=== PATIENT | male | born 1960 | race Caucasian/White ===

== ENCOUNTER 2018-05-16 17:51 | Emergency (ER) | payer OTHER ==
[~2018-05-16] VITALS: Ht 188 cm; Wt 165.6 kg
[~2018-05-16 17:51] MED LIST: AMOX1TAB11 PO; ASPI-612 PO; DILT120C85 PO
[2018-05-16] MEDS ORDERED: GELATIN SPONGE SIZE 12-7MM SPONGE. TP ONE (18:00)
[2018-05-16] MEDS ORDERED: LIDOCAINE 1%/EPI 1:100,000 20 ML VIAL. INJ ONE (18:00)
[2018-05-16 18:33] LABS: BASO % 1 % (0-3); EOS # 0.4 x10^3/uL (0.0-0.7); EOS % 6 % (0-3); HEMATOCRIT 40.6 % (39.0-53.0); HEMOGLOBIN 13.9 g/dL (13.0-17.5); LYMPH # 1.2 x10^3/uL (1.0-4.8); LYMPH % 16 % (24-48); MEAN CORPUSCULAR HEMOGLOBIN 31 pg (25-35); MEAN CORPUSCULAR HGB CONC 34 g/dL (31-37); MEAN CORPUSCULAR VOLUME 89 fL (79-100); MONO # 0.9 x10^3/uL (0.0-1.1); MONO % 12 % (0-9); NEUT # 4.7 x10^3uL (1.8-7.7); NEUT % 65 % (31-73); PLATELET COUNT 159 x10^3/uL (140-400); RED BLOOD COUNT 4.57 x10^6/uL (4.30-5.70); RED CELL DISTRIBUTION WIDTH 13.7 % (11.5-14.5); WHITE BLOOD COUNT 7.3 x10^3/uL (4.0-11.0)
[2018-05-16 18:41] LABS: CALCIUM 8.7 mg/dL (8.5-10.1); CREATININE 0.9 mg/dL (0.7-1.3); POTASSIUM 3.4 mmol/L (3.5-5.1)
[2018-05-16 19:30] VITALS: BP 188/97
--- NOTE | 2018-05-16 20:21 | PHYS DOC ---
Past Medical History Past Medical History: No Pertinent History Additional Past Medical Histor: DENIES MEDICAL HX Past Surgical History: Appendectomy, Tonsillectomy Alcohol Use: None Drug Use: None Adult General Chief Complaint Chief Complaint: OTHER COMPLAINTS HPI HPI 57-year-old male presents to ER via EMS with complaints of sudden onset of bleeding from his left lower extremity. Patient reports he was walking through his home when he noticed he had bled a large amount of blood out. EMS reports approximately 100-200 mL blood loss at his residence. Patient denies having previous issues with varicose veins rupturing. Patient on arrival denies any dizziness or lightheadedness. Patient denies any pain. Patient denies daily blood thinners. He denies any recent falls or injury to left lower extremity. Review of Systems Review of Systems Constitutional: Denies fever or chills. Denies weakness Respiratory: Denies cough or shortness of breath [] Cardiovascular: No chest pain or palpitations GI: Denies nausea, vomiting Musculoskeletal: Denies leg or joint pain. Reports bleeding from left lower/ outer leg Integument: Denies rash or skin lesions. Neurologic: Denies headache, focal weakness or sensory changes. Denies dizziness or lightheadedness All other systems were reviewed and found to be within normal limits, except as documented in this note. Current Medications Current Medications Current Medications Medications (Trade) Dose Ordered Sig/Kylah Start Time Stop Time Status Last Admin Dose Admin Gelatin (Gelfoam Size 12-7mm) 1 each 1X ONCE 05/16/18 18:00 05/16/18 18:01 DC Lidocaine/ Epinephrine (LIDOCAINE 1%-EPI 1:100,000 Multi-Dose) 20 ml 1X ONCE 05/16/18 18:00 05/16/18 18:01 DC Allergies Allergies Allergies Coded Allergies Type Severity Reaction Last Updated Verified No Known Drug Allergies 11/25/15 No Physical Exam Physical Exam Constitutional: Well developed, well nourished, no acute distress, non-toxic appearance. [] HENT: Normocephalic, atraumatic, oropharynx moist, no oral exudates, nose normal. [] Eyes: Pupils equal, no nystagmus, conjunctiva normal, no discharge. [] Neck: Normal range of motion, no tenderness, supple, no stridor. [] Cardiovascular: Heart rate regular rhythm, no murmur [] Lungs & Thorax: Bilateral breath sounds clear to auscultation. Resp. equal/ nonlabored Abdomen: Bowel sounds normal, soft/obese, no tenderness Skin: Warm, dry, no erythema, no rash. [] Extremities: No tenderness, no cyanosis, no clubbing, ROM intact. Multiple varicose veins in lower legs- 2+ bilat edema in lower legs/ankles/feet. Dorsal pedis/pedal pulse 2+ bilat. Neurologic: Alert and oriented X 3, normal motor function, normal sensory function, no focal deficits noted. [] Psychologic: Affect normal, judgement normal, mood normal. [ Current Patient Data Vital Signs Vital Signs Date Time Temp Pulse Resp B/P (MAP) Pulse Ox O2 Delivery O2 Flow Rate FiO2 05/16/18 18:03 98.1 82 16 153/65 (94) 99 Room Air 98.1 Lab Values Laboratory Tests Test 05/16/18 18:18 White Blood Count 7.3 x10^3/uL (4.0-11.0) Red Blood Count 4.57 x10^6/uL (4.30-5.70) Hemoglobin 13.9 g/dL (13.0-17.5) Hematocrit 40.6 % (39.0-53.0) Mean Corpuscular Volume 89 fL (79-100) Mean Corpuscular Hemoglobin 31 pg (25-35) Mean Corpuscular Hemoglobin Concent 34 g/dL (31-37) Red Cell Distribution Width 13.7 % (11.5-14.5) Platelet Count 159 x10^3/uL (140-400) Neutrophils (%) (Auto) 65 % (31-73) Lymphocytes (%) (Auto) 16 % (24-48) L Monocytes (%) (Auto) 12 % (0-9) H Eosinophils (%) (Auto) 6 % (0-3) H Basophils (%) (Auto) 1 % (0-3) Neutrophils # (Auto) 4.7 x10^3uL (1.8-7.7) Lymphocytes # (Auto) 1.2 x10^3/uL (1.0-4.8) Monocytes # (Auto) 0.9 x10^3/uL (0.0-1.1) Eosinophils # (Auto) 0.4 x10^3/uL (0.0-0.7) Basophils # (Auto) 0.0 x10^3/uL (0.0-0.2) Sodium Level 141 mmol/L (136-145) Potassium Level 3.4 mmol/L (3.5-5.1) L Chloride Level 106 mmol/L (98-107) Carbon Dioxide Level 29 mmol/L (21-32) Anion Gap 6 (6-14) Blood Urea Nitrogen 25 mg/dL (8-26) Creatinine 0.9 mg/dL (0.7-1.3) Estimated GFR (Cockcroft-Gault) 87.0 Glucose Level 123 mg/dL (70-99) H Calcium Level 8.7 mg/dL (8.5-10.1) Laboratory Tests 05/16/18 18:18 Laboratory Tests 05/16/18 18:18 EKG EKG [] Radiology/Procedures Radiology/Procedures [] Course & Med Decision Making Course & Med Decision Making Pertinent Labs reviewed. (See chart for details) 1938: Discussed lab results with stable H&H 13.9/40.6. Pressure drsg which EMS applied was taken off and pt had active bleeding from varicose vein on lt lateral lower leg. 2004: On exam suture site where pt had been bleeding has had no bleeding since sutures/surgicel placed to site. He remains neuro/vascular intact in bilat. LEs with 2+ equal pedal/dorsal pedis pulse. Pt has had no acute swelling in lt LE. He denies pain and is nontoxic in appearance in no visible distress. Pressure dressing will be applied to suture site. Patient was instructed he needs follow- up with primary care physician in next 1-2 days for reevaluation and then will need sutures out in 8-10 days. Education provided on signs and symptoms to return to ER for. Patient was instructed to remove wrap and monitor skin condition at suture site for signs of infection, swelling, or abnormalities. Discharge instructions were discussed and patient is comfortable with home discharge as planned. Dragon Disclaimer Dragon Disclaimer This electronic medical record was generated, in whole or in part, using a voice recognition dictation system. Departure Departure Impression: Primary Impression: Ruptured varicose vein Disposition: 01 HOME, SELF-CARE Condition: STABLE Referrals: NO PCP (PCP) Patient Instructions: Bleeding Varicose Veins Additional Instructions: As discussed monitor skin condition left lower leg at suture site for signs of infection/swelling or abnormal skin conditions. Elevate lower extremities. Use walker or crutches to take some of weight of left lower leg when walking. If bleeding starts apply direct pressure/ice pack and return to Emergency Department if bleeding won't stop. ADRIAN CLEVELAND APRN May 16, 2018 20:21
== END 2018-05-16 20:50 | disposition home or self-care (01) ==
LOC: ER 17:51
DX: I83.893 Varicose veins of bilateral lower extremities with other complications (principal)
CPT/HCPCS: 36415; 80048; 85025; 99283

== ENCOUNTER → 2019-03-09 | Outpatient (CLI) | payer OTHER ==
[2019-02-14 15:00] VITALS: BP 188/90
[~2019-03-09] MED LIST changes: -DILT120C85 PO; +DILT120C99 PO; +HYDR-2761 PO; +LACT1CAP19 PO; +LEVO750T31 PO; +LOSA-73 PO
--- NOTE | 2019-03-09 15:35 | RAD ---
EXAM: Lower extremity arterial Doppler sonogram with ankle-brachial indices (ALIX). HISTORY: Nonhealing wounds. TECHNIQUE: Doppler sonographic evaluation of the lower extremities was performed and pressure readings were assessed. FINDINGS: Right brachial pressure: 175 mmHg Left brachial pressure: 173 mmHg Right ankle pressure (posterior tibial artery): 171 mmHg Right ankle pressure (dorsalis pedis artery): 169 mmHg Right ALIX: 0.97 Left ankle pressure (posterior tibial artery): 188 mmHg Left ankle pressure (dorsalis pedis artery): 178 mmHg Left ALIX: 1.1 There are triphasic waveforms within the bilateral common femoral arteries and superficial femoral arteries and right popliteal, right posterior tibial and right anterior tibial artery. There are biphasic waveforms within the bilateral deep femoral, left popliteal, left posterior tibial and right dorsalis pedis arteries. There are abnormal monophasic waveforms within the bilateral peroneal and left anterior tibial and dorsalis pedis arteries. There are elevated peak systolic velocities within the lateral common femoral arteries, measuring 161 cm/s. IMPRESSION: 1. Normal ankle-brachial indices. 2. Abnormal monophasic waveforms within the bilateral peroneal arteries and left anterior tibial artery and dorsalis pedis artery, suggesting hemodynamically significant proximal stenosis. There are also mildly elevated peak systolic velocities within the common femoral arteries suggesting a clinically significant stenosis. No occlusion is seen. Electronically signed by: Linda Schmid MD (03/09/2019 3:32 PM) [place] [id number]
--- NOTE | 2019-03-09 17:59 | RAD ---
Examination: VENOUS REFLUX BILATERAL History: Nonhealing leg wounds Comparison/Correlation: None Findings: Bilateral lower extremity greater saphenous and lesser saphenous vein duplex ultrasound was performed. Diameter of the right great saphenous vein above to 0.8 cm noted. Diameter of the left great saphenous vein up to 1.1 cm is noted. At the mid thigh and distal thigh level, the left great saphenous vein diameter is identified measuring 0.6 and 0.5 cm. No venous reflux identified. Impression: No lower extremity venous reflux. Electronically signed by: Kevin Pineda MD (03/09/2019 5:57 PM) [facility]
== END | disposition home or self-care (01) ==
LOC: US 14:30
PROVIDERS: ATTEND Preventive Medicine Undersea and Hyperbaric Medicine
DX: I74.3 Embolism and thrombosis of arteries of the lower extremities (principal); L89.529 Pressure ulcer of left ankle, unspecified stage; L89.519 Pressure ulcer of right ankle, unspecified stage
CPT/HCPCS: 93922; 93925; 93970

== ENCOUNTER 2020-06-27 13:53 | Emergency (ER) | payer OTHER ==
[~2020-06-27] VITALS: Ht 188 cm; Wt 160.0 kg
[~2020-06-27 13:53] MED LIST changes: -ASPI-612 PO; +ASPI-886 PO
[2020-06-27 15:45] VITALS: BP 213/95
--- NOTE | 2020-06-27 16:57 | RAD ---
Three-view right knee radiographs 06/27/2020 CLINICAL HISTORY: Twisting injury to the right knee with pain. AP, Lateral and oblique digital radiographs of the right knee were obtained. No fracture or dislocati on of the right knee is seen. Mild to moderate degenerative changes are seen involving all 3 compartm ents of the right knee. There is no radiographic evidence of a joint effusion. IMPRESSION: No fracture or dislocation of the right knee is seen. Electronically signed by: Edward Go MD (06/27/2020 4:54 PM) [id number]
[2020-06-27] MEDS ORDERED: METH4TAB2 PO (17:03)
--- NOTE | 2020-06-27 17:04 | PHYS DOC ---
Past Medical History Past Medical History: No Pertinent History Additional Past Medical Histor: DENIES MEDICAL HX Past Surgical History: Appendectomy, Tonsillectomy Smoking Status: Never Smoker Alcohol Use: None Drug Use: None General Adult EDM: Chief Complaint: KNEE INJURY HPI: HPI: Patient is a 59 year old male who presents with states a week to week and a half ago he was getting on the shower and he twisted his right knee too far. He states since then it has been hurting and stiff. He states he has been up and walking on it and going to work. He states that she is not getting better. Patient rates his pain 5 out of 10 states it is throbbing and aching. Review of Systems: Review of Systems: Constitutional: Denies fever or chills. [] Eyes: Denies change in visual acuity. [] HENT: Denies nasal congestion or sore throat. [] Respiratory: Denies cough or shortness of breath. [] Cardiovascular: Denies chest pain or edema. [] GI: Denies abdominal pain, nausea, vomiting, bloody stools or diarrhea. [] : Denies dysuria. [] Musculoskeletal: Denies back pain. + Right knee pain joint pain. [] Integument: Denies rash. [] Neurologic: Denies headache, focal weakness or sensory changes. [] Endocrine: Denies polyuria or polydipsia. [] Lymphatic: Denies swollen glands. [] Psychiatric: Denies depression or anxiety. [] Heart Score: Risk Factors: Risk Factors: DM, Current or recent (<one month) smoker, HTN, HLP, family history of CAD, obesity. Risk Scores: Score 0 - 3: 2.5% MACE over next 6 weeks - Discharge Home Score 4 - 6: 20.3% MACE over next 6 weeks - Admit for Clinical Observation Score 7 - 10: 72.7% MACE over next 6 weeks - Early Invasive Strategies Allergies: Allergies: Allergies Coded Allergies Type Severity Reaction Last Updated Verified No Known Drug Allergies 11/25/15 No Physical Exam: PE: Constitutional: Well developed, well nourished, no acute distress, non-toxic appearance. [] HENT: Normocephalic, atraumatic, bilateral external ears normal, oropharynx moist, no oral exudates, nose normal. [] Eyes: PERRLA, EOMI, conjunctiva normal, no discharge. [] Neck: Normal range of motion, no tenderness, supple, no stridor. [] Cardiovascular:Heart rate regular rhythm, no murmur [] Lungs & Thorax: Bilateral breath sounds clear to auscultation [] Abdomen: Bowel sounds normal, soft, no tenderness, no masses, no pulsatile masses. [] Skin: Warm, dry, no erythema, no rash. [] Back: No tenderness, no CVA tenderness. [] Extremities: No tenderness, no cyanosis, no clubbing, right knee ROM did but in tact, no edema. [] Neurologic: Alert and oriented X 3, normal motor function, normal sensory function, no focal deficits noted. [] Psychologic: Affect normal, judgement normal, mood normal. [] Current Patient Data: Vital Signs: Vital Signs Date Time Temp Pulse Resp B/P (MAP) Pulse Ox O2 Delivery O2 Flow Rate FiO2 06/27/20 15:45 98.2 70 16 213/95 (134) 97 Room Air 98.2 EKG: EKG: [] Radiology/Procedures: Radiology/Procedures: [] Impression: [facility] [address] [place] [address] IMAGING REPORT Signed PATIENT: ROBERTH FONTENOT ACCOUNT: [id number] : 1960 LOCATION: ER AGE: 59 SEX: M EXAM STATUS: REG ER ORD. PHYSICIAN: SHARI SHAW APRN REASON: PAIN, TWISTED KNEE WRONG PROCEDURE: KNEE RIGHT 3V Three-view right knee radiographs 06/27/2020 CLINICAL HISTORY: Twisting injury to the right knee with pain. AP, Lateral and oblique digital radiographs of the right knee were obtained. No fracture or dislocation of the right knee is seen. Mild to moderate degenerative changes are seen involving all 3 compartments of the right knee. There is no radiographic evidence of a joint effusion. IMPRESSION: No fracture or dislocation of the right knee is seen. Electronically signed by: Edward Go MD (06/27/2020 4:54 PM) [id number] DICTATED and SIGNED BY: EDWARD GO MD DATE: 06/27/20 [id number] 0 Course & Med Decision Making: Course & Med Decision Making Pertinent Labs and Imaging studies reviewed. (See chart for details) See HPI. Alert and oriented x4. Speaks in full complete sentences. Patient is morbidly obese. Patient has bilateral leg 3+ swelling. There is no deformity to the right knee. He does have range of motion of the right knee but it is stiff and painful for him to extend. No tenderness to the knee, there does not appear to be any more swelling to that knee compared to the left knee. Skin pink warm and dry. Pedal pulse present. Denies any numbness or tingling or coolness of the extremity. Denies any skin changes in color. Patient is too obese for a knee immobilizer. Patient will need to follow-up with a orthopedic doctor. I have explained the patient the x-ray see bones but I do not see ligaments or muscle and the patient will need to be seen by an orthopedic doctor for possible MRI. There shows no acute findings but does show degenerative changes. [] Dragon Disclaimer: Dragon Disclaimer: This electronic medical record was generated, in whole or in part, using a voice recognition dictation system. Departure Departure Impression: Primary Impression: Knee pain, right Qualified Codes: M25.561 - Pain in right knee Disposition: 01 DC HOME SELF CARE/HOMELESS Condition: STABLE Referrals: NO PCP (PCP) NANETTE PETTY MD Patient Instructions: Arthritis, Degenerative-Brief, Knee Sprain Additional Instructions: Follow-up with orthopedic as soon as possible. Use ice and heat to help with pain. Continue taking the anti-inflammatory pain medicine. Scripts Methylprednisolone (MEDROL) 4 Mg Tab.ds.pk 1 PKG PO UD, #1 PKG Prov: SHARI SHAW PLODDING MACHINE OPERATOR 06/27/20 SHARI SHAW PLODDING MACHINE OPERATOR Jun 27, 2020 17:04
== END 2020-06-27 17:25 | disposition home or self-care (01) ==
LOC: ER 13:53
DX: M25.561 Pain in right knee (principal); Z90.89 Acquired absence of other organs
CPT/HCPCS: 73562; 99283